=== PATIENT | female | born 2005 | race Hispanic/Latino ===

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

== ENCOUNTER 2024-12-08 20:44 | Emergency (ER) | payer SELFPAY ==
[~2024-12-08] VITALS: Ht 154.9 cm; Wt 46.7 kg
[2024-12-08 21:44] LABS: AMPHET/METH SCREEN,URINE NEGATIVE (NEGATIVE); BARBITURATE SCREEN, URINE NEGATIVE (NEGATIVE); BENZODIAZEPINES SCREEN,URINE NEGATIVE (NEGATIVE); CANNABINOID SCREEN,URINE NEGATIVE (NEGATIVE); COCAINE SCREEN,URINE NEGATIVE (NEGATIVE); OPIATE SCREEN,URINE NEGATIVE (NEGATIVE); PHENCYCLIDINE SCREEN,URINE NEGATIVE (NEGATIVE)
[2024-12-08 21:50] LABS: RAPID GROUP A STREP negative (NEGATIVE)
[2024-12-08 21:55] LABS: SARS-CoV-2, RNA, NAAT NEGATIVE SARS CoV-2 (NEGATIVE)
[2024-12-08 22:00] LABS: INFLUENZA TYPE A Negative For Type A (NEGATIVE); INFLUENZA TYPE B Negative For Type B (NEGATIVE)
[2024-12-08 22:51] LABS: BASOPHILS # (AUTO) 0.03 K/uL (0.00-0.20); BASOPHILS % (AUTO) 0.4 % (0.0-5.0); EOSINOPHILS # (AUTO) 0.21 K/uL (0.00-0.70); EOSINOPHILS % (AUTO) 2.7 % (0.0-8.0); HEMATOCRIT 34.9 % (36-48); IMMATURE GRANULOCYTE ABSOLUTE 0.03 K/uL (0-1); LYMPHOCYTES # (AUTO) 2.9 K/uL (1.0-4.8); LYMPHOCYTES % (AUTO) 37.1 % (21.0-51.0); MEAN CORPUSCULAR HEMOGLOBIN 30.4 pg (27.0-33.0); MEAN CORPUSCULAR VOLUME 92.3 fL (80-100); MONOCYTES # (AUTO) 0.6 K/uL (0.1-1.0); MONOCYTES % (AUTO) 6.9 % (3.0-13.0); NEUTROPHILS # (AUTO) 4.2 K/uL (1.8-7.7); NEUTROPHILS % (AUTO) 52.5 % (40.0-77.0); PLATELET COUNT (AUTO) 284 K/uL (130-400); RED BLOOD CELL COUNT(AUTO) 3.78 MIL/uL (4.00-5.50); RED CELL DISTRIBUTION WIDTH 13.2 % (11.0-15.5); WHITE BLOOD COUNT (AUTO) 7.9 K/uL (4.8-10.8)
[2024-12-08 22:59] LABS: CREATININE 0.7 mg/dL (0.5-1.0); POTASSIUM 3.7 mmol/L (3.5-5.1)
--- NOTE | 2024-12-08 23:43 | HMCIMG ---
CHEST 1VW HISTORY: Chest pain and cough COMPARISON: None FINDINGS: A frontal projection of the chest was obtained. No acute pulmonary infiltrates is seen. The heart is normal in size. All the lines and tubes are again seen in place. No evidence of aortic calcification is seen. IMPRESSION: 1. No acute pulmonary infiltrate is seen.
--- NOTE | 2024-12-08 23:53 | ERN ---
General Chief Complaint: Multiple Complaints Stated Complaint: CHEST PAIN, FAINTING, NUMBNESS IN FEET Time Seen by MD: 20:48 Time Seen by Midlevel: 20:48 Source: patient History of Present Illness Initial Comments Patient is a 19-year-old female with no significant past medical history presenting to the emergency department multiple complaints. Symptoms consist of chest pain, feeling like she was going to pass out, and numbness to bilateral feet. Allergies: Coded Allergies: No Known Drug Allergies (Unverified Allergy, Unknown, 04/23/22) Past Medical History Past Medical History: No Pertinent History Past Surgical History: None Female( History) LMP: Nov 10, 2024 : 1 Para: 0 Aborts: 0 ROS Dictation CONSTITUTIONAL: Negative except for HPI HEAD/FACE: Negative except for HPI EENT: Negative except for HPI RESPIRATORY: Negative except for HPI GASTROINTESTINAL/ABDOMINAL: Negative except for HPI GENITOURINARY: Negative except for HPI MUSCULOSKELETAL: Negative except for HPI INTEGUMENTARY: Negative except for HPI NEUROLOGICAL/PSYCH: Negative except for HPI HEMATOLOGIC/LYMPHATIC: Negative except for HPI All Systems Negative, Except as noted above. 13 point review of systems assessed and all negative except for above. Physical Exam Physical Exam Dictation Vital Signs reviewed General Appearance: Alert, oriented x 3, no acute distress, well developed, nourished. Head and Face: non-traumatic. Eyes: PERRL, pink conjunctivas, eyelid no trauma, anterior chamber with arcus senilis. Ears: Pinnas intact and no signs of trauma or erythema ear canals clear and no discharge TM no erythema Nose: No discharge, no bleeding. Oropharynx: Mouth normal, tongue pink, pharynx clear,no erythema, tonsils no exudates, no abscesses noted, mucous membrane moist Neck: Supple, non-tender, no thyromegaly, no masses, no JVD, no bruits Breast:Deferred Chest:No tenderness, no crepitus, no paradoxical movement, no retractions Lungs:Clear, well-ventilated, symmetric, no rales, no wheezing, no rhonchi, no stridor, good breath sounds bilaterally Heart: Regular rate, regular rhythm, no murmur, no gallops Vascular: no peripheral edema, Abdomen: Soft, positive bowel sounds, nondistended, no guarding, nontender, no rebound, no masses no hepatomegaly, no splenomegaly, no Mahoney's sign, no hernias. Rectal: Deferred Genital: Deferred Neurological: Normal speech, motor function intact, sensory function intact Musculoskeletal: Neck nontender, full range of motion, back nontender, full range of motion, Extremities: nontender, full range of motion Skin: Color pink, dry, no turgor, no rash, no lacerations, no abrasions, no contusions. Lymphatic: Deferred Results Laboratory and Microbiology Lab and Micro Result Laboratory Tests Test 12/08/24 21:08 12/08/24 21:22 12/08/24 22:38 Influenza Type A Antigen Negative For Type A Influenza Type B Antigen Negative For Type B SARS-CoV-2, RNA, NAAT NEGATIVE SARS CoV-2 Group A Streptococcus Rapid negative (NEGATIVE) Urine Opiates Screen NEGATIVE (NEGATIVE) Urine Barbiturates Screen NEGATIVE (NEGATIVE) Urine Phencyclidine Screen NEGATIVE (NEGATIVE) Urine Amphetamines Screen NEGATIVE (NEGATIVE) Urine Benzodiazepines Screen NEGATIVE (NEGATIVE) Urine Cocaine Screen NEGATIVE (NEGATIVE) Urine Marijuana (THC) Screen NEGATIVE (NEGATIVE) White Blood Count 7.9 K/uL (4.8-10.8) Red Blood Count 3.78 MIL/uL (4.00-5.50) L Hemoglobin 11.5 g/dL (12.0-16.0) L Hematocrit 34.9 % (36-48) L Mean Corpuscular Volume 92.3 fL (80-100) Mean Corpuscular Hemoglobin 30.4 pg (27.0-33.0) Mean Corpuscular Hemoglobin Concent 33.0 g/dL (32.0-36.0) Red Cell Distribution Width 13.2 % (11.0-15.5) Platelet Count 284 K/uL (130-400) Mean Platelet Volume 9.3 fL (7.5-10.5) Immature Granulocyte % (Auto) 0.4 % (0-1) Neutrophils (%) (Auto) 52.5 % (40.0-77.0) Lymphocytes (%) (Auto) 37.1 % (21.0-51.0) Monocytes (%) (Auto) 6.9 % (3.0-13.0) Eosinophils (%) (Auto) 2.7 % (0.0-8.0) Basophils (%) (Auto) 0.4 % (0.0-5.0) Neutrophils # (Auto) 4.2 K/uL (1.8-7.7) Lymphocytes # (Auto) 2.9 K/uL (1.0-4.8) Monocytes # (Auto) 0.6 K/uL (0.1-1.0) Eosinophils # (Auto) 0.21 K/uL (0.00-0.70) Basophils # (Auto) 0.03 K/uL (0.00-0.20) Absolute Immature Granulocyte (auto 0.03 K/uL (0-1) Nucleated Red Blood Cells 0.0 % (0.0-0.19) Sodium Level 135 mmol/L (136-145) L Potassium Level 3.7 mmol/L (3.5-5.1) Chloride Level 99 mmol/L (101-111) L Carbon Dioxide Level 32 mmol/L (21-32) Blood Urea Nitrogen 7 mg/dL (7-18) Creatinine 0.7 mg/dL (0.5-1.0) Glomerular Filtration Rate Calc 126 mL/min (>90) Random Glucose 93 mg/dL (70-105) Total Calcium 9.4 mg/dL (8.5-10.1) Troponin I High Sensitivity < 4 ng/L (4-50) L Serum Test, Qualitative NEGATIVE (NEGATIVE) Labs Reviewed?: Yes MDM MDM: 19-year-old female presenting to the emergency department with nonspecific symptoms. Symptoms consist of chest pain, lightheadedness, and numbness to bilateral feet. We obtained basic labs. CBC and chemistries are stable. Urine drug screen is negative. Respiratory swabs are negative. There was no evidence of hypokalemia, dehydration, leukocytosis, or thrombocytopenia. Hemoglobin is stable at 11.5. EKG shows no evidence of an acute coronary syndrome. Chest x- ray is clear. Patient was given 1 L of IV fluids and reports feeling significantly improved. Patient will be discharged home Differential diagnosis: Dehydration, electrolyte abnormality, ACS, anxiety There are no social concerns with this patient. Prescription drug management Prescriptions will include: None Medical management and examination interpretation discussions were had by me with other qualified healthcare professionals as indicated for the patient's care. ED Course Orders Procedure Category Date Status Time Covid Rna Naat LAB 12/08/24 Complete 21:10 Influenza Type A & B, LAB 12/08/24 Complete Rapid 21:10 Rapid (Group A Strep) LAB 12/08/24 Complete 21:10 Cbc With Differential LAB 12/08/24 Complete 21:11 Basic Metabolic Panel LAB 12/08/24 Complete 21:11 Testing, LAB 12/08/24 Complete Serum Hcg 21:11 12 Lead Ekg Tracing- EKG 12/08/24 Logged Technical 21:11 Chest 1vw RAD 12/08/24 Resulted 21:11 Covid Rna Naat LAB 12/08/24 Logged 21:11 Rapid (Group A Strep) LAB 12/08/24 Logged 21:11 Drug Screen Urine LAB 12/08/24 Complete 21:11 Troponin I High LAB 12/08/24 Complete Sensitivity 21:11 0.9%Nacl 1000ml (Ns PHA 12/08/24 Complete 1000ml) 23:30 Current Medications Medications (Trade) Dose Ordered Sig/Juan Alberto Route PRN Reason Start Time Stop Time Status Last Admin Dose Admin Sodium Chloride 1,000 ml @ 0 mls/hr ONCE ONCE IV 12/08/24 23:30 12/08/24 23:31 DC 12/09/24 01:54 Vital Signs Date Time Temp Pulse Resp B/P (MAP) Pulse Ox O2 Delivery O2 Flow Rate FiO2 12/08/24 21:06 98.2 71 20 118/73 100 Room Air [address] [address] IMAGING REPORT Signed PATIENT: ANDREA GREGORY MR#: [id number] : 2005 SEX: F AGE: 19 LOCATION: [facility] ORDER 12 STATUS: REG ER REPORT#: [id number] SERVICE 10 REASON: cp/cough ORDERING PHYSICIAN: ABY BORJA PROCEDURE: CXR1VW - CHEST 1VW CHEST 1VW HISTORY: Chest pain and cough COMPARISON: None FINDINGS: A frontal projection of the chest was obtained. No acute pulmonary infiltrates is seen. The heart is normal in size. All the lines and tubes are again seen in place. No evidence of aortic calcification is seen. IMPRESSION: 1. No acute pulmonary infiltrate is seen. DICTATED BY: XANDER HA MD DATE: 03/25/25 2341 ELECTRONICALLY SIGNED BY: XANDER HA MD DATE: 12/08/242342 DX & DISP Disposition: Discharge Departure Impression: Primary Impression: Cough Additional Impression: Non-cardiac chest pain Condition: Stable Additional Instructions: Your blood work today is unremarkable. You have tested negative for influenza a, influenza B, COVID-19, and strep. Your cardiac enzymes are negative. Your EKG is normal. Your chest x-ray does not show any abnormality. You need to follow up with your primary care doctor for further evaluation. No need for emergent intervention at this time. Referrals: SELF,REFERRAL (PCP) Time of Disposition: 00:25 I have reviewed the case, and I agree with, Diagnosis and Plan I performed the substantive portion of the visit. I have reviewed and personally made and approve the management plan that is documented in the note by myself or the PETR. I acknowledge for responsibility for the patient's management plan. ABY BORJA Dec 08, 2024 23:53
[2024-12-09] MEDS: 0.9%NACL 1000ML 1,000 ML IV ONE (01:54)
[2024-12-09 03:00] VITALS: BP 116/72; PULSE 68; RESP 16; TEMP 98.1; O2SAT 99
--- NOTE | 2024-12-09 06:43 | EKG ---
[facility] Test Date: 2024-12-08 Test Time: 21:13:36 Pat Name: ANDREA GREGORY Department: ED Room: Gender: F Section Chief: [id number] : 2005 Requested By: ABY BORJA Order Number: [id number] Reading MD: Wyatt Mariano Measurements Intervals [place] Rate: 67 P: 47 [place]: 153 QRS: 66 QRSD: 80 T: 71 QT: 344 QTc: 363 Interpretive Statements Sinus rhythm ST elev, probable normal early repol pattern No previous ECG available for comparison Electronically Signed On 12-09-2024 07:27:24 CDT by Wyatt Mariano Please click the below link to view image of tracing.
== END 2024-12-09 03:15 | disposition home or self-care (01) ==
LOC: EDH 20:44
DX: R05.9 Cough, unspecified (principal); R07.89 Other chest pain; Z20.822 Contact with and (suspected) exposure to COVID-19
CPT/HCPCS: 99285; 71045; 87635; 84484; 80048; 80305; 84703; 85025; 87880; 87804 ×2; 36415; 93005; J7030